=== PATIENT | female | born 1995 | race African-American/Black ===

== ENCOUNTER 2023-07-28 08:25 | Emergency (ER) | payer BC | END 2023-07-28 09:13 | disposition home or self-care (01) | LOC: CSHERS 08:25 | DX: K11.5 Sialolithiasis (principal); K11.20 Sialoadenitis, unspecified; E11.9 Type 2 diabetes mellitus without complications | CPT/HCPCS: 99283 ==

== ENCOUNTER 2024-03-06 10:09 | Emergency (ER) | payer BC ==
[2024-03-06] MEDS ORDERED: Ibuprofen 200 MG TAB ONE (10:51)
== END 2024-03-06 12:04 | disposition home or self-care (01) ==
LOC: CSHERS 10:09
DX: M54.12 Radiculopathy, cervical region (principal); E11.9 Type 2 diabetes mellitus without complications
CPT/HCPCS: 93005

== ENCOUNTER 2025-03-15 16:26 | Emergency (ER) | payer BC ==
[2025-03-15 19:23] LABS: BHCG - Serum Negative (NEGATIVE); Pregs Control Background? CLEAR/WHITE (CLR/WHITE); Pregs Control Bar Appear? YES (CONTROL BAR)
[2025-03-15] MEDS ORDERED: Metoclopramide HCl 10 MG (2 mL) VIAL ONE (19:25)
[2025-03-15] MEDS ORDERED: Acetaminophen 500 MG TAB ONE (19:26)
[2025-03-15] MEDS ORDERED: Ketorolac Tromethamine 30 MG (1 mL) VIAL ONE (19:38)
== END 2025-03-15 21:01 | disposition home or self-care (01) ==
LOC: CSHERS 16:26
DX: J10.1 Influenza due to other identified influenza virus with other respiratory manifestations (principal); H66.92 Otitis media, unspecified, left ear; E11.9 Type 2 diabetes mellitus without complications
CPT/HCPCS: 36415; 84703; 87428; 96374; 96375; J1885; J2765

== ENCOUNTER 2025-05-06 19:22 | Emergency (ER) | payer BC ==
[2025-05-06 20:29] LABS: #Basophils Less than 0.03 10x3/uL (0.0-0.2); #Eosinophils 0.16 10x3/uL (0.0-0.5); #Monocytes 0.57 10x3/uL (0.0-1.1); #Neutrophils 3.31 10x3/uL (1.5-8.4); %Basophils 0.3 % (0.0-2.0); %Eosinophils 2.5 % (0.0-6.0); %Lymphocytes 36.4 % (18.0-47.0); %Monocytes 8.9 % (0.0-10.0); %Neutrophils 51.7 % (40.0-75.0); Hematocrit 35.5 % (34.9-44.5); Hemoglobin 11.7 g/dL (12.0-15.5); Mean Corpuscular Hemoglobin 28.3 pg (27.0-33.0); Mean Corpuscular Volume 86.0 fL (81.6-98.3); Platelet Count 398 10x3/uL (150-450); Red Blood Cell (RBC) Count 4.13 10x6/uL (3.90-5.03); White Blood Cell (WBC) Count 6.40 10x3/uL (3.5-10.5)
[2025-05-06 20:30] LABS: Glucose, Urine (Dipstick) 100 mg/dL (Negative); Leukocyte Negative (Negative); Protein, Urine (Dipstick) 30 mg/dl (Neg-Trace); Specific Gravity, Urine 1.025 (1.005-1.030)
[2025-05-06 20:39] LABS: Pregnancy Test - Urine (BHCG) Negative (Negative); Pregu Control Background? CLEAR/WHITE (CLR/WHITE); Pregu Control Bar Appear? YES (CONTROL BAR)
[2025-05-06 20:50] LABS: ALT (SGPT) 18 U/L (Less than 34); AST (SGOT) 27 U/L (11-34); Albumin 4.0 g/dL (3.1-4.5); Alkaline Phosphatase 58 U/L (40-110); Anion Gap 11 mmol/L (10-20); BUN (Urea Nitrogen) 13 mg/dL (7.0-18.7); Bilirubin, Total 0.2 mg/dL (0.3-1.2); Calc. Creatinine Clearance 0 mL/min (70-130); Calcium 9.5 mg/dL (7.8-10.44); Carbon Dioxide 27 mmol/L (22-29); Chloride 107 mmol/L (98-107); Globulin 3.7 g/dL (2.4-3.5); Glucose 177 mg/dL (70-105); Lipase 28 U/L (8-78); Potassium 3.9 mmol/L (3.5-5.1); Sodium 141 mmol/L (136-145)
[2025-05-06 21:28] LABS: Bacteria/HPF 4+ HPF (None Seen); CAUTI Indications for Culture Dysuria,urgency,freq; Mucous/LPF 1+ LPF (<2+); WBC/HPF 0-3 HPF (0-3)
[2025-05-06 21:29] LABS: Urine Culture Reflex No No
== END 2025-05-06 21:50 | disposition home or self-care (01) ==
LOC: CSHERS 19:22
DX: R10.9 Unspecified abdominal pain (principal); E11.9 Type 2 diabetes mellitus without complications; Z79.84 Long term (current) use of oral hypoglycemic drugs; Z79.4 Long term (current) use of insulin
CPT/HCPCS: 76856; 80053; 81001; 81025; 83690; 84702; 85025; 86900; 86901

== ENCOUNTER 2025-06-13 16:41 | Emergency (ER) | payer BC ==
[2025-06-13 18:01] LABS: #Basophils Less than 0.03 10x3/uL (0.0-0.2); #Eosinophils 0.10 10x3/uL (0.0-0.5); #Monocytes 0.44 10x3/uL (0.0-1.1); #Neutrophils 2.57 10x3/uL (1.5-8.4); %Basophils 0.2 % (0.0-2.0); %Eosinophils 2.0 % (0.0-6.0); %Lymphocytes 37.9 % (18.0-47.0); %Monocytes 8.7 % (0.0-10.0); %Neutrophils 51.0 % (40.0-75.0); Hematocrit 37.0 % (34.9-44.5); Hemoglobin 12.3 g/dL (12.0-15.5); Mean Corpuscular Hemoglobin 28.7 pg (27.0-33.0); Mean Corpuscular Volume 86.4 fL (81.6-98.3); Platelet Count 392 10x3/uL (150-450); Red Blood Cell (RBC) Count 4.28 10x6/uL (3.90-5.03); White Blood Cell (WBC) Count 5.04 10x3/uL (3.5-10.5)
[2025-06-13 18:11] LABS: BHCG - Serum Negative (NEGATIVE); Pregs Control Background? CLEAR/WHITE (CLR/WHITE); Pregs Control Bar Appear? YES (CONTROL BAR)
[2025-06-13 18:18] LABS: Acetaminophen Less than 10 mcg/mL (Less than 10); Lipase 40 U/L (8-78); Magnesium 1.9 mg/dL (1.6-2.6); Salicylate Less than 8.0 mg/dL (Less than 8.0)
[2025-06-13 18:19] LABS: ALT (SGPT) 15 U/L (Less than 34); AST (SGOT) 22 U/L (11-34); Albumin 3.9 g/dL (3.1-4.5); Alkaline Phosphatase 62 U/L (40-110); Anion Gap 13 mmol/L (10-20); BUN (Urea Nitrogen) 10 mg/dL (7.0-18.7); Bilirubin, Total 0.2 mg/dL (0.3-1.2); Calc. Creatinine Clearance 0 mL/min (70-130); Calcium 8.7 mg/dL (7.8-10.44); Carbon Dioxide 23 mmol/L (22-29); Chloride 106 mmol/L (98-107); Globulin 3.9 g/dL (2.4-3.5); Glucose 189 mg/dL (70-105); Potassium 4.0 mmol/L (3.5-5.1); Sodium 138 mmol/L (136-145)
[2025-06-13 18:22] LABS: Troponin I Less than 0.010 ng/mL (< 0.028)
[2025-06-13 18:40] LABS: Glucose, Urine (Dipstick) 100 mg/dL (Negative); Leukocyte Negative (Negative); Protein, Urine (Dipstick) 15 mg/dl (Neg-Trace); Specific Gravity, Urine 1.025 (1.005-1.030)
[2025-06-13 18:58] LABS: Bacteria/HPF 2+ HPF (None Seen); CAUTI Indications for Culture Dysuria,urgency,freq; Cocaine Metabolite Screen Negative (Negative); Mucous/LPF 2+ LPF (<2+); RBC/HPF 0-3 HPF (0-3); THC/Cannabinoid Screen Negative (Negative); Tricyclic Screen Negative (Negative); WBC/HPF 0-3 HPF (0-3)
[2025-06-13 18:59] LABS: Urine Culture Reflex No No
== END 2025-06-13 21:42 | disposition home or self-care (01) ==
LOC: CSHERS 16:41
DX: E10.65 Type 1 diabetes mellitus with hyperglycemia (principal); R53.83 Other fatigue
CPT/HCPCS: 36415; 36416; 80053; 80306; 80307; 81001; 83605; 83690; 83735; 84484; 84703; 85025; 93005; 99284